=== PATIENT | male | born 1945 | race Caucasian/White ===

== ENCOUNTER → 2020-10-20 11:16 | Outpatient (CLI) | payer MEDICARE, OTHER, SELFPAY ==
[2020-10-20 13:26] LABS: COVID19 - ADMIT (NP swab/PCR) Negative (Negative)
== END ==
PROVIDERS: Visit Provider Physician Assistant
DX: Z20.822 Contact with and (suspected) exposure to COVID-19 (principal)
CPT/HCPCS: 87635; C9803

== ENCOUNTER → 2022-06-30 10:00 | Outpatient (CLI) | payer MEDICARE, OTHER, SELFPAY ==
[2022-06-30 10:34] LABS: COVID19 -Nasal RAPID Negative (Negative)
== END ==
PROVIDERS: PCP Internal Medicine; Referring Provider Orthopaedic Surgery Foot and Ankle Surgery; Visit Provider Orthopaedic Surgery Foot and Ankle Surgery
DX: Z20.822 Contact with and (suspected) exposure to COVID-19 (principal)
CPT/HCPCS: 87635; C9803

== ENCOUNTER 2022-07-02 09:20 | Day surgery (SDC) | payer MEDICARE, OTHER, SELFPAY ==
[2022-07-02] VITALS (10 sets, daily range): BP systolic 137–163; BP diastolic 96–108; PULSE 82–99; RESP 15–24; TEMP 36.3–36.9; O2SAT 91–97; BMI 35.7
--- NOTE | 2022-07-02 10:24 | PM.PREOP ---
Pre-operative Note COVID-19 COVID-19 status: Negative Criteria for continued procedure: Expected advancement of disease process Interval Note History & Physical reviewed/Exam performed by Physician: Yes Changes to H&P: No
[2022-07-02] MEDS: LACTATED RINGERS 1,000 ML 84 ML IV (10:36)
--- NOTE | 2022-07-02 12:08 | SUR.PREOP ---
Block start time [1137] . Monitoring initiated and maintained throughout procedure. Oxygen and medications given per anesthesiologist instructions. Patient remained stable throughout procedure, no adverse reactions noted. Block end time [1155].
[2022-07-02] MEDS: CEFAZOLIN 3 GM IN 0.9 % NACL 3 GM/100 ML PLAST..BAG IV (12:15)
--- NOTE | 2022-07-02 12:47 | SUR.OPER ---
Supine on padded OR bed, head on pillow, arms secured on padded arm boards at <90 degrees abduction, legs uncrossed, safety belt at waist, tape over blanket over lower left leg, right leg draped free.
[2022-07-02] MEDS: VANCOMYCIN 1,000 MG VIAL 1000 MG INTRA-ARTI (13:03)
[2022-07-02] MEDS: BUPIVACAINE 0.25% (PF) 30 ML, EPINEPHrine 0.15 MG INJ (13:04)
--- NOTE | 2022-07-02 13:06 | DI.RAD.S_ITS ---
PROCEDURE: XR TOE RT MIN 2V INDICATIONS: CLEAN OUT, ANTIBIOTIC BEAD PLACEMENT TECHNIQUE: 4 intraoperative views of the 1st digit toe(s) acquired. COMPARISON: [facility] Outside Film, CR, XR FOOT 3+ VIEWS RIGHT, 06/14/2022, 18:38. FINDINGS: 1st digit distal phalanx fracture. Implanted antibiotic beads. IMPRESSION: Intraoperative image guidance provided. Dictated by: Scot Barfield M.D. on 07/02/2022 at 13:42 Approved by: Scot Barfield M.D. on 07/02/2022 at 13:45
--- NOTE | 2022-07-02 13:26 | P.OP_ITS ---
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 Chronic anticoagulation z79.01 MSSA infection a49.01 BMI 35 Post-op diagnosis: same Procedure & Clinicians Procedure: Resection arthroplasty right great toe interphalangeal joint infection CPT code 18322, right Excisional debridement osteomyelitis right foot great toe interphalangeal joint CPT code 23916 Insertion drug delivery device and deep soft tissue and joint, Stimulan antibiotic beads CPT code 26138, right Same procedure as scheduled: Yes Indications: Patient is a 76-year-old male that had a history of a toe injury and shortly after a hospitalization and MSSA bacteremia and a pelvic abscess. 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 He was given options for attempted salvage versus amputation. He elects for limb salvage this includes irrigation debridement resection arthroplasty of the osteomyelitis implantation antibiotic beads and bone biopsies incoordination with the Infectious Disease for antibiotics. The risks and benefits of the procedure have been discussed with the patient and given the opportunity to ask questions. The risks of surgery include but are not limited to infection, malunion, nonunion, persistence of pain, damage to nerves and blood vessels, posttraumatic arthritis, DVT, PE, coardiopulmonary complications and . The patient expressed a thorough understanding of the risks and benefits of surgery and has elected to proceed. Consent was signed in the office today. He understands there is risk for need for additional procedures either amputation or later fusion if infection is eradicated. 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 There was abnormal cloudy fluid with penetration of the IP joint no gross purulence or pockets or abscess. Resection arthroplasty completed at the distal and proximal phalanx. Bone was sent for culture and PCR Closure Type: primary Specimen(s): other (Bone proximal phalanx and distal phalanx was sent for PCR and culture) Prosthetic devices, grafts, tissues, transplants, or devices: Stimulant antibiotic beads mixed with vancomycin Estimated Blood Loss (mL): 10 Blood products transfused: none Tourniquet time (min): 40 Procedure in detail: Patient was seen in the preoperative area the site of surgery marked informed consent confirmed. The patient underwent a regional block with the anesthesia service for postoperative pain control. Patient was brought back to the operating room positioned supine on operative table. All bony prominences were well padded. Well-padded thigh tourniquet was placed. General anesthesia was administered. The right lower extremity was prepped and draped in standard sterile fashion a formal time-out procedure was performed confirming the patient and site of surgery administration of appropriate antibiotics. All were in agreement. Patient already been on the scheduled outpatient oral antibiotics as well. Attention was turned the right lower extremity Esmarch was used for exsanguination tourniquet raised on the thigh to 250 mmHg and stayed there for 40 minutes. Attention was turned to the great toe IP joint there was a global swelling. Erythema was less than in the office last week. There was no drainage. A curvilinear S shaped incision was taken over the IP joint this was taken down through the skin subcutaneous tissue. The extensor hallux longus was sharply transected over the IP joint and the joint was exposed. There was a murky yellow fluid from the IP joint this was sent for cultures. And this exposed the IP joint with complete destruction of the articular surface on the end of the distal phalanx. And predominant destruction of cartilage on the distal end of the proximal phalanx. The TTS saw was brought in for resection arthroplasty taking minimal bone from both the distal phalanx and proximal phalanx to preserve length. This bone was sent for culture and PCR. Next C-arm was brought in and checked at appropriate resection was obtained to correct the pathologic hallux valgus interphalangeus as well. Then the wound was copiously irrigated with saline. Once this was completed gloves and instruments were changed and a new drape was placed. The Stimulan beads 3 cc were mixed with 500 mg of vancomycin and set up in the small beads. These were placed into the wound the bone was then coapted and a 2-0 PDS was used to repair the extensor hallucis longus and capsule restoring alignment. Additional beads were then placed into the soft tissues. Final intraoperative fluoroscopy was obtained AP and lateral planes demonstrated appropriate alignment of the AP joint resection arthroplasty with antibiotic beads. Subcutaneous closure with 4-0 Monocryl was completed followed by skin closure with 3-0 nylon suture. Tourniquet was released. Hemostasis was achieved. A dressing was placed with a sterile gauze and Xeroform Kerlix and Coban. Toes pinked up well after the tourniquet was released. All counts were correct. Drapes removed. Patient was woken from anesthesia taken to recovery room in good condition. There were no immediate complications of this procedure. All counts were correct again Complications: none Post-operative Condition: stable Disposition: PACU Plan for aftercare: Weightbear as tolerated in stiff-soled postoperative shoe. Keep dressing clean dry and intact. Follow-up in [facility] 2 weeks. Continue oral antibiotics. Plan is to follow cultures and PCR. Determine appropriate IV antibiotic versus continued oral, coordinate with [facility] Infectious Disease
[2022-07-12 10:19] LABS: Bacteria Det by PCR Univ WA DETECTED
== END 2022-07-02 14:35 | disposition home or self-care (01) ==
PROVIDERS: PCP Internal Medicine; Referring Provider Orthopaedic Surgery Foot and Ankle Surgery; Visit Provider Orthopaedic Surgery Foot and Ankle Surgery
PROC: (CPT 28160; principal; 2022-07-02 11:45)
DX: M86.9 Osteomyelitis, unspecified (principal); E11.69 Type 2 diabetes mellitus with other specified complication; B95.61 Methicillin susceptible Staphylococcus aureus infection as the cause of diseases classified elsewhere; Z79.84 Long term (current) use of oral hypoglycemic drugs; E66.9 Obesity, unspecified; Z68.35 Body mass index [BMI] 35.0-35.9, adult; Z79.01 Long term (current) use of anticoagulants; I11.0 Hypertensive heart disease with heart failure; G47.30 Sleep apnea, unspecified
CPT/HCPCS: 28160; 64450; 73660; 76000; 87070; 87075; 87077; 87147; 87186; 87205; 87801; J0171; J0690; J1100; J2250; J2405; J2704; J3010